=== PATIENT | female | born 1990 | race Caucasian/White ===

== ENCOUNTER → 2017-03-31 | Outpatient (CLI) | payer MEDICAID | LOC: EDSEX 10:02 → FIMAGING 10:02 → EEVIPCON 10:45 | PROVIDERS: ATTEND Nurse Practitioner | DX: R10.2 Pelvic and perineal pain (principal) ==

== ENCOUNTER 2017-05-20 11:27 | Emergency (ER) | payer MEDICAID ==
[2017-05-20 11:44] VITALS: RESP 18
[2017-05-20] MEDS ORDERED: MECLIZINE HCL 25 MG TAB PO ONE (11:47)
[2017-05-20] MEDS ORDERED: ONDANSETRON 4 MG/2 ML VIAL IVP ONE (11:47)
--- NOTE | 2017-05-20 11:53 | EDPHY ---
H & P Stated Complaint: c/o dizzyness x 1 wk- worse with eye closed- denies trauma Time Seen by Provider: 05/20/17 11:35 HPI/ROS: CHIEF COMPLAINT: Dizziness, nausea, and diminished appetite HISTORY OF PRESENT ILLNESS: This is a 26-year-old anatomically female transgender ring to male individual presenting with 1 week of what he describes as vertigo. Patient reports a week ago he woke with a spinning, dizzy sensation. Symptoms are worse when upright and worse when moving his head. The improved with lying flat. Has had ongoing nausea and diminished appetite but no vomiting. No headache. No sinus congestion or URI symptoms. No lightheadedness, chest pain, palpitations, or fainting. No gait disturbances. No numbness or tingling in his arms or legs. No weakness. No prior history of similar events. Denies fevers or chills, denies chest pain, shortness of breath, palpitations, urinary complaints or lightheadedness. REVIEW OF SYSTEMS: Aside from elements discussed in the HPI, a comprehensive 10-point review of systems was reviewed and is negative. 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 History of pneumonia. History of hypothyroidism. Unknown LMP. SOCIAL HISTORY: Denies alcohol, cigarettes, illicit drug use. VITAL SIGNS Reviewed by me. GENERAL: Well-developed, well-nourished, no distress. HEENT: Atraumatic. Eyes: PERRL, EOMI. No nystagmus on lateral gaze. No icterus, no injection. Mouth: moist mucous membranes. No erythema or lesions. Neck: supple with no adenopathy. No carotid bruits. LUNGS: Clear to auscultation bilaterally, no wheezes, rhonchi or rales. CARDIAC: Regular rate and rhythm, no rubs, murmurs or gallops. ABDOMEN: Soft, nontender, nondistended, bowel sounds normal. BACK: No CVA tenderness. EXTREMITIES: No trauma. No edema. Range of motion is normal throughout. NEURO: Alert and oriented, motor strength 5/5 throughout. Sensation intact to light touch. Cranial nerves 2-12 are intact. Cqizak-[id number] normal. Gait normal. SKIN: Warm and dry, no rash. PSYCHIATRIC: Normal mentation, no agitation. - Personal History LMP (Females 10-55): Unknown Current Tetanus Diphtheria and Acellular Pertussis (TDAP): Yes - Medical/Surgical History Other PMH: transgender to male. Pne/Broncitis - Social History Smoking Status: Light smoker Constitutional: Initial Vital Signs Temperature (C) 37.2 C 05/20/17 11:39 Heart Rate 75 05/20/17 11:39 Respiratory Rate 18 05/20/17 11:39 Blood Pressure 150/84 H 05/20/17 11:39 O2 Sat (%) 96 05/20/17 11:39 O2 Delivery Mode Room Air Allergies/Adverse Reactions: No Known Allergies Allergy (Unverified 05/20/17 11:36) Home Medications: Medication Instructions Recorded Meclizine HCl [Meclizine HCl 25 mg 25 mg PO BID #20 tab 05/20/17 (RX,OTC)] Ondansetron Odt [Zofran Odt 4 mg 4 mg PO Q6 PRN #8 tab 05/20/17 (RX)] Prozac 10 MG (*) 05/20/17 Terazol 7 05/20/17 Testosterone 05/20/17 Medical Decision Making ED Course/Re-evaluation: 26-year-old individual presenting with a complaint of dizziness, nausea, diminished appetite for the last week. Patient's exam is normal with the exception of nystagmus and a partially obscured right tympanic membrane. He does complain of dizziness with eye movement. Laboratory evaluation was drawn as the patient has reported significant anorexia over the last week. These were normal. Patient received Zofran for nausea and meclizine for the vertiginous symptoms. On re-evaluation he reports his nausea is improved. He is tolerating p.o. fluids. His dizziness is slightly improved. He is ambulatory without any difficulties. Has not had any vomiting here. Looks well. Symptoms are mild and somewhat improved. Differential Diagnosis: Differential diagnosis of the patient's dizziness was considered including but not limited to peripheral and central causes of vertigo, cardiac arrhythmias, cardiac ischemia, electrolyte disturbances, neurologic causes, orthostatic causes including dehydration, and blood loss. - Data Points Laboratory Results: Laboratory Results 05/20/17 11:55 05/20/17 11:55 05/20/17 05/20/17 05/20/17 11:55 11:55 11:55 WBC 5.39 10^3/uL 10^3/uL (3.80-9.50) RBC 5.70 10^6/uL H 10^6/uL (4.18-5.33) Hgb 16.6 g/dL H g/dL (12.6-16.3) Hct 47.5 % H % (38.0-47.0) MCV 83.3 fL fL (81.5-99.8) MCH 29.1 pg pg (27.9-34.1) MCHC 34.9 g/dL g/dL (32.4-36.7) RDW 12.9 % % (11.5-15.2) Plt Count 257 10^3/uL 10^3/uL (150-400) MPV 10.7 fL fL (8.7-11.7) Neut % (Auto) 59.9 % % (39.3-74.2) Lymph % (Auto) 29.9 % % (15.0-45.0) [place] % (Auto) 7.6 % % (4.5-13.0) Eos % (Auto) 2.0 % % (0.6-7.6) Baso % (Auto) 0.4 % % (0.3-1.7) Nucleat RBC Rel Count 0.0 % % (0.0-0.2) Absolute Neuts (auto) 3.23 10^3/uL 10^3/uL (1.70-6.50) Absolute Lymphs (auto) 1.61 10^3/uL 10^3/uL (1.00-3.00) Absolute Monos (auto) 0.41 10^3/uL 10^3/uL (0.30-0.80) Absolute Eos (auto) 0.11 10^3/uL 10^3/uL (0.03-0.40) Absolute Basos (auto) 0.02 10^3/uL 10^3/uL (0.02-0.10) Absolute Nucleated RBC 0.00 10^3/uL 10^3/uL (0-0.01) Immature Gran % 0.2 % % (0.0-1.1) Immature Gran # 0.01 10^3/uL 10^3/uL (0.00-0.10) Sodium 142 mEq/L mEq/L (134-144) Potassium 4.3 mEq/L mEq/L (3.5-5.2) Chloride 105 mEq/L mEq/L (97-110) Carbon Dioxide 23 mEq/l mEq/l (22-31) Anion Gap 14 mEq/L mEq/L (8-16) BUN 8 mg/dL mg/dL (7-23) Creatinine 0.9 mg/dL mg/dL (0.6-1.0) Estimated GFR > 60 Glucose 102 mg/dL H mg/dL (70-100) Calcium 10.2 mg/dL mg/dL (8.5-10.4) Beta HCG, Qual NEGATIVE Medications Given: Discontinued Medications Meclizine HCl (Meclizine Hcl) 25 mg PO EDNOW ONE Stop: 05/20/17 11:48 Last Admin: 05/20/17 11:59 Dose: 25 mg Ondansetron HCl (Zofran) 4 mg IVP EDNOW ONE Stop: 05/20/17 11:48 Last Admin: 05/20/17 11:59 Dose: 4 mg Departure - Departure Disposition: Home, Routine, Self-Care Clinical Impression: Vertigo, Nausea alone Condition: Good Instructions: Vertigo (ED), Benign Paroxysmal Positional Vertigo (ED) Additional Instructions: May take meclizine as needed for symptoms of dizziness and vertigo. Doses 25 mg 2 times a day. It is available [id number] but I have also provided you with a prescription. You been given a prescription of Zofran. Please use this as needed for any ongoing nausea. Get plenty of rest and drink plenty of fluid. Your labs indicates slight dehydration. If your symptoms worsen, especially if you develop vomiting, unsteady gait, severe headache, or other concerns, please return to the emergency department or follow up with her primary care physician. I would recommend he be re-evaluated next week if her symptoms have not significantly improved. Referrals: LEON LE [Primary Care Provider] - As per Instructions Stand Alone Forms: Work Excuse Prescriptions: Meclizine HCl [Meclizine HCl 25 mg (RX,OTC)] 25 mg PO BID #20 tab Ondansetron Odt [Zofran Odt 4 mg (RX)] 4 mg PO Q6 PRN #8 tab PRN Reason: Nausea
[2017-05-20 12:11] LABS: PLATELET COUNT 257 10^3/uL (150-400)
[2017-05-20 13:02] VITALS: BP 141/62; PULSE 78; TEMP 98; O2SAT 97
== END 2017-05-20 13:00 | disposition home or self-care (01) ==
LOC: CED 11:27
DX: R42 Dizziness and giddiness (principal); R11.0 Nausea; F17.210 Nicotine dependence, cigarettes, uncomplicated
CPT/HCPCS: 80048-PO; 84703-PO; 85025-PO; 96374; J2405